=== PATIENT | male | born 1980 | race Caucasian/White ===

== ENCOUNTER 2017-01-12 10:45 | Emergency (ER) | payer OTHER ==
[~2017-01-12] VITALS: Ht 172.7 cm; Wt 120.0 kg
[2017-01-12 10:47] VITALS: BP 174/103; PULSE 90; RESP 20; TEMP 98.2; O2SAT 100
[2017-01-12] MEDS ORDERED: NAPR500 PO (11:09)
[2017-01-12] MEDS ORDERED: TYLE325T PO (11:10)
--- NOTE | 2017-01-12 11:14 | PD ---
HPI Chief Complaint: Musculoskeletal Complaint Time Seen by Provider: 11:10 Travel History International Travel<30 days: No Contact w/Intl Traveler<30days: No Traveled to known affect area: No History of Present Illness HPI Patient's 36-year-old male presented to emergency department for evaluation of right lower back pain. Patient states the pain started 4 weeks ago, he attributes to bending over and performing repetitive activities at work. He went to his primary doctor at the onset and a urinalysis was performed which was negative. Patient was prescribed Naprosyn which he has been taking consistently. He continues to have the pain in his back. He states it feels tight and cramping. Patient denies any dysuria, hematuria, bladder or bowel incontinence, saddle paresthesia. He denies a significant past medical history. He states that over the last 2-3 days he's felt hot and cold but has not taken his temperature. He has no other complaints at this time. Patient denies any significant past medical history. Patient is mainly [place]-speaking , he does understand some [place]gu[place]. Interpretation was provided by nurse at bedside. FORMERLY [facility], [facility]–1983 Past Medical History Medical History: Denies Significant Hx Social History Alcohol Use: No Tobacco Use: No Substance Use: No Allergies-Medications (Allergen,Severity, Reaction): Coded Allergies: No Known Allergies (Unverified , 01/12/17) Reported Meds & Prescriptions Reported Meds & Active Scripts Active Carafate Liq (Sucralfate) 1 Gm/10 Ml Susp 1 Gm PO QID PRN 10 Days on empty stomach Flexeril (Cyclobenzaprine HCl) 10 Mg Tab 10 Mg PO TID PRN 10 Days Meloxicam 15 Mg Tab 15 Mg PO DAILY 14 Days Reported Tylenol (Acetaminophen) 325 Mg Tab 325 Mg PO ONCE Naprosyn (Naproxen) 500 Mg Tab 500 Mg PO BID Review of Systems Except as stated in HPI: all other systems reviewed are Neg Musculoskeletal: Positive: Myalgias, Cramping Neurologic: No: Weakness, Focal Abnormalities, Paresthesia, Sensory Disturbance Physical Exam Narrative GENERAL: Well-developed, well-nourished, alert male. Resting comfortably in no acute distress. SKIN: Focused skin assessment warm/dry. HEAD: Atraumatic. Normocephalic. EYES: Pupils equal and round. No scleral icterus. No injection or drainage. ENT: No nasal bleeding or discharge. Mucous membranes pink and moist. NECK: Trachea midline. No JVD. CARDIOVASCULAR: Regular rate and rhythm. No murmur appreciated. RESPIRATORY: No accessory muscle use. Clear to auscultation. Breath sounds equal bilaterally. GASTROINTESTINAL: Abdomen soft, non-tender, nondistended. Hepatic and splenic margins not palpable. MUSCULOSKELETAL: No obvious deformities. No clubbing. No cyanosis. No edema. Tenderness to palpation paraspinal musculature in the lumbar region on the right side. No spinal tenderness or step-off noted. No CVAT bilaterally NEUROLOGICAL: Awake and alert. No obvious cranial nerve deficits. Motor grossly within normal limits. Normal speech. PSYCHIATRIC: Appropriate mood and affect; insight and judgment normal. Data Data Last Documented VS Vital Signs Date Time Temp Pulse Resp B/P Pulse Ox O2 Delivery O2 Flow Rate FiO2 01/12/17 12:20 98.9 68 14 139/91 100 01/12/17 10:47 Room Air Orders Orphenadrine Inj (Norflex Inj) (01/12/17 11:15) Dexamethasone Inj (Decadron Inj) (01/12/17 11:15) Sucralfate Liq (Carafate Liq) (01/12/17 11:45) [facility] Medical Decision Making Medical Screen Exam Complete: Yes Emergency Medical Condition: Yes Interpretation(s) Vital Signs Date Time Temp Pulse Resp B/P Pulse Ox O2 Delivery O2 Flow Rate FiO2 01/12/17 10:47 98.2 90 20 174/103 100 Room Air Differential Diagnosis Sciatica versus strain versus sprain versus spasm versus discogenic pain versus other Narrative Course Patient is a 36-year-old male presenting with 1 month of right lower back pain unrelieved with Naprosyn. Patient is neurologically intact, he will be given dexamethasone and Norflex now. BP elevated in triage, will reassess. After initial assessment patient requested formal interpretation. [employer] was utilized to interpret for patient. He reiterated the fact that he felt feverish over the last few days. He also stated that his stomach was upset. Patient reported a history of gastritis. Patient was educated that consistent use of naproxen could cause GI upset especially with his history of gastritis. At this time Carafate was ordered for patient. We'll continue with previous plan of care. Patient is agreeable at this time. Patient was reassured that [employer] would be utilized prior to discharge as well. [employer] credit reporting clerk utilized to give patient discharge instructions. He was given full instructions on medication as well as changes made. He was advised to discontinue naproxen and start meloxicam. He was encouraged to follow-up with his primary doctor. He was advised the Flexeril may make him drowsy and to avoid driving or operating machinery until he knows how he reacts to it. He was encouraged to apply warm moist heat to his back, continue range of motion exercises, avoid exacerbating activities. He was encouraged to return to emergency department for any new or worsening symptoms. Patient verbalized understanding of instructions. Patient is stable for discharge. Diagnosis Primary Impression: Strain of lumbar paraspinal muscle Qualified Code: S39.012A - Strain of lumbar paraspinal muscle, initial encounter Additional Impression: Spasm of lumbar paraspinous muscle Referrals: Primary Care Physician 3 days Patient Instructions: General Instructions, Muscle Spasm (ED), Muscle Strain ( ED) Additional Instructions: Follow-up with your primary doctor Take medications as directed Discontinue Naprosyn, start meloxicam Avoid bed rest, avoid exacerbating activities, apply warm moist heat to the affected area, continue range of motion exercises Return to emergency department for any new or worsening symptoms Med/Other Pt SpecificInfo: Prescription(s) given Scripts Sucralfate Liq (Carafate Liq)1 Gm/10 Ml Susp1 Gm PO QID PRN (DYSPEPSIA) 10 Days Ref 0 on empty stomach Prov:Suha Zabala 01/12/17 Cyclobenzaprine (Flexeril)10 Mg Tab10 Mg PO TID PRN (MUSCLE SPASM) 10 Days Ref 0 Prov:Suha Zabala 01/12/17 Meloxicam 15 Mg Tab15 Mg PO DAILY 14 Days Ref 0 Prov:Suha Zabala 01/12/17 Disposition: 01 DISCHARGE HOME Condition: Stable Suha Zabala Jan 12, 2017 11:13
[2017-01-12] MEDS ORDERED: ORPHENADRINE INJ 60 MG/2 ML AMP IM ONE (11:15)
[2017-01-12] MEDS ORDERED: DEXAMETHASONE SOD PHOS 20 MG/5 ML VIAL IM ONE (11:15)
[2017-01-12] MEDS ORDERED: SUCRALFATE 1 GM/10 ML CUP PO ONE (11:45)
[2017-01-12 12:14] VITALS: BP 140/87; PULSE 87; RESP 16; TEMP 97.5
[2017-01-12 12:20] VITALS: BP 139/91; PULSE 68; RESP 14; TEMP 98.9; O2SAT 100
[2017-01-12] MEDS ORDERED: CARA1SUS3 PO (12:21)
[2017-01-12] MEDS ORDERED: MELO-1 PO (12:21)
[2017-01-12] MEDS ORDERED: CYCL1TAB29 PO (12:21)
== END 2017-01-12 13:25 | disposition home or self-care (01) ==
LOC: NEPD 10:45
DX: S39.012A Strain of muscle, fascia and tendon of lower back, initial encounter (principal); M62.830 Muscle spasm of back; X50.3XXA Overexertion from repetitive movements, initial encounter
CPT/HCPCS: 96372; 99284; J1100; J2360